=== PATIENT | male | born 1995 | race Caucasian/White ===

== ENCOUNTER 2016-06-19 08:58 | Emergency (ER) | payer BC, OTHER ==
--- NOTE | 2016-06-19 10:13 | EDM.PDOC ---
ED HPI GENERAL MEDICAL PROBLEM - General Chief Complaint: Abdominal Pain Stated Complaint: ILL Time Seen by Provider: 06/19/16 09:26 Source of Information: Reports: Patient History Limitations: Reports: No Limitations - History of Present Illness INITIAL COMMENTS - FREE TEXT/NARRATIVE: History of present illness: [] Patient had intermittent right flank pain that is sharp lasting a few seconds and has been dealing with at home. He's had intermittent episodes since he was 14 years old As morning of episode that was worse than normal and lasted longer so decided to come in to get checked. He denies any recent illnesses no shortness of breath or chest pain, blood in his urine or pain with urinating. He has had no vomiting, diarrhea or nausea. Review of systems: As per history of present illness and below otherwise all systems reviewed and negative. Past medical history: As per history of present illness and as reviewed below otherwise noncontributory. Surgical history: As per history of present illness and as reviewed below otherwise noncontributory. Social history: No reported history of drug or alcohol abuse. Family history: As per history of present illness and as reviewed below otherwise noncontributory. Physical exam: General: Well developed, well nourished in NAD HEENT: Atraumatic, normocephalic, pupils reactive, negative for conjunctival pallor or scleral icterus, mucous membranes moist, throat clear, neck supple, nontender, trachea midline. Lungs: Clear to auscultation, breath sounds equal bilaterally, chest nontender. Heart: S1S2, regular, negative for clicks, rubs, or JVD. Abdomen: Soft, nondistended, nontender. Negative for masses or hepatosplenomegaly. Negative for costovertebral tenderness. No rash noted on skin Pelvis: Stable nontender. Genitourinary: Deferred. Rectal: Deferred. Extremities: Atraumatic, negative for cords or calf pain. Neurovascular unremarkable. Neuro: Awake, alert, oriented. Cranial nerves II through XII unremarkable. Cerebellum unremarkable. Motor and sensory unremarkable throughout. Exam nonfocal. Diagnostics: [] Labs and x-rays negative Therapeutics: [] Pain in the ED therefore no meds were given. Impression: [] Nonspecific right trunk pain Plan: [] Tylenol for pain followup with primary care return if symptoms worsen or change Definitive disposition and diagnosis as appropriate pending reevaluation and review of above. abdomen Pain Score (Numeric/FACES): 2 - Related Data Allergies Allergy/AdvReac Type Severity Reaction Status Date / Time No Known Allergies Allergy Verified 06/19/16 09:21 Home Meds: Home Meds . [No Known Home Meds] 12/26/15 [History] Past Medical History - Past Health History Medical/Surgical History: Denies Medical/Surgical History Social & Family History - Family History Family Medical History: Noncontributory - Tobacco Use Smoking Status *Q: Current Every Day Smoker Years of Tobacco use: 2 Packs/Tins Daily: 1 - Caffeine Use Caffeine Use: Reports: None - Recreational Drug Use Recreational Drug Use: No ED ROS GENERAL - Review of Systems Review Of Systems: See Below (See history of present illness) ED EXAM, GI/ABD - Physical Exam Exam: See Below (See history of present illness) Course - Vital Signs Last Recorded V/S: Last Vital Signs Temp 36.8 C 06/19/16 09:23 Pulse 82 06/19/16 09:23 Resp 18 06/19/16 09:23 BP 123/81 06/19/16 09:23 Pulse Ox 96 06/19/16 09:23 - Orders/Labs/Meds Orders: Active Orders 24 hr Category Date Time Status Chest 2V [CR] Stat Exams 06/19/16 09:33 Taken Labs: Laboratory Tests 06/19/16 06/19/16 06/19/16 Range/Units 09:33 09:44 09:44 WBC 9.23 (4.0-11.0) K/uL RBC 5.21 (4.50-5.90) M/uL Hgb 16.3 (13.0-17.0) g/dL Hct 46.8 (38.0-50.0) % MCV 89.8 (80.0-98.0) fL MCH 31.3 (27.0-32.0) pg MCHC 34.8 (31.0-37.0) g/dL RDW Std Deviation 43.9 (28.0-62.0) fl RDW Coeff of Sacha 13 (11.0-15.0) % Plt Count 196 (150-400) K/uL MPV 10.20 (7.40-12.00) fL Neut % (Auto) 66.5 (48.0-80.0) % Lymph % (Auto) 24.1 (16.0-40.0) % [place] % (Auto) 8.0 (0.0-15.0) % Eos % (Auto) 1.2 (0.0-7.0) % Baso % (Auto) 0.2 (0.0-1.5) % Neut # (Auto) 6.1 H (1.4-5.7) K/uL Lymph # (Auto) 2.2 (0.6-2.4) K/uL [place] # (Auto) 0.7 (0.0-0.8) K/uL Eos # (Auto) 0.1 (0.0-0.7) K/uL Baso # (Auto) 0.0 (0.0-0.1) K/uL Nucleated RBC % 0.0 /100WBC Nucleated RBCs # 0 K/uL Sodium 138 (136-146) mmol/L Potassium 4.0 (3.5-5.1) mmol/L Chloride 105 (98-110) mmol/L Carbon Dioxide 24 (21-31) mmol/L BUN 12 (6.0-23.0) mg/dL Creatinine 1.1 (0.6-1.5) mg/dL Est Cr Clr Drug Dosing 113.03 mL/min Estimated GFR (MDRD) > 60.0 ml/min Glucose 94 (60-110) mg/dL Calcium 9.6 (8.8-10.8) mg/dL Total Bilirubin 0.7 (0.1-1.5) mg/dL AST 17 (5-40) IU/L ALT 17 (8-54) IU/L Alkaline Phosphatase 64 (40-150) Total Protein 7.5 (6.0-8.0) g/dL Albumin 4.7 (3.5-5.0) g/dL Globulin 2.8 (2.0-3.5) g/dL Albumin/Globulin Ratio 1.7 (1.3-2.8) Lipase 15 (7-80) U/L Urine Color YELLOW Urine Appearance CLEAR Urine pH 6.0 (5.0-8.0) Ur Specific [place] 1.020 (1.001-1.035) Urine Protein NEGATIVE (NEGATIVE) mg/dL Urine Glucose (UA) NEGATIVE (NEGATIVE) mg/dL Urine Ketones NEGATIVE (NEGATIVE) mg/dL Urine Occult Blood NEGATIVE (NEGATIVE) Urine Nitrite NEGATIVE (NEGATIVE) Urine Bilirubin SMALL H (NEGATIVE) Urine Ictotest NEGATIVE Urine Urobilinogen 1.0 (<2.0) EU/dL Ur Leukocyte Esterase NEGATIVE (NEGATIVE) Urine RBC 0-2 (0-2/HPF) Urine WBC 0-2 (0-5/HPF) Ur Epithelial Cells RARE (NONE-FEW) Urine Bacteria FEW (NEGATIVE) Departure - Departure Time of Disposition: 11:27 Disposition: Home, Self-Care 01 Condition: good Clinical Impression: Right flank pain, chronic - Discharge Information Forms: ED Department Discharge Additional Instructions: The following information is given to patients seen in the emergency department who are being discharged to home. This information is to outline your options for follow-up care. We provide all patients seen in our emergency department with a follow-up referral. The need for follow-up, as well as the timing and circumstances, are variable depending upon the specifics of your emergency department visit. If you don't have a primary care physician on staff, we will provide you with a referral. We always advise you to contact your personal physician following an emergency department visit to inform them of the circumstance of the visit and for follow-up with them and/or the need for any referrals to a consulting specialist. The emergency department will also refer you to a specialist when appropriate. This referral assures that you have the opportunity for follow-up care with a specialist. All of these measure are taken in an effort to provide you with optimal care, which includes your follow-up. Under all circumstances we always encourage you to contact your private physician who remains a resource for coordinating your care. When calling for follow-up care, please make the office aware that this follow-up is from your recent emergency room visit. If for any reason you are refused follow-up, please contact the [facility] Emergency Department at and asked to speak to the emergency department charge nurse. Tylenol for pain [facility] [address] [place] [id number] - My Orders Last 24 Hours: My Active Orders 06/19/16 09:33 Chest 2V [CR] Stat - Assessment/Plan Last 24 Hours: My Active Orders 06/19/16 09:33 Chest 2V [CR] Stat
[2016-06-19 10:14] LABS: CHLORIDE,CL 105 mmol/L (98-110); SODIUM,NA 138 mmol/L (136-146)
[2016-06-19 11:35] VITALS: BP 135/84
--- NOTE | 2016-06-19 20:40 | CR ---
EXAM DATE: 06/19/16 PATIENT'S AGE: 20 Patient: SHAKA TURNER Facility: [place], [place] Site . Site : 1995 Study: XRay Chest Thoracic [id number]/12/2017 11:15:59 AM Ordering Physician: Be Trevino Final Report: INDICATION: Chest pain COMPARISON: none TECHNIQUE: Two view chest. FINDINGS: The lungs are clear. There is no evidence of pneumothorax. The heart, mediastinum and pulmonary vessels are of normal size. There is no evidence of pleural fluid. IMPRESSION: Negative chest. Dictated by Melvin Esparza MD @ Jun 19 2016 11:16AM (Electronic Signature) Report Signed by Proxy. RANDY
== END 2016-06-19 11:38 | disposition home or self-care (01) ==
LOC: MW.ED 08:58
DX: R10.9 Unspecified abdominal pain (principal); F17.200 Nicotine dependence, unspecified, uncomplicated
CPT/HCPCS: 36415; 71020; 71020-26; 80053; 81001; 83690; 85025; 99282; 99284

== ENCOUNTER 2017-01-02 00:54 | Emergency (ER) | payer BC, OTHER ==
--- NOTE | 2017-01-02 01:05 | EDM.PDOC ---
ED HPI GENERAL MEDICAL PROBLEM - General Chief Complaint: Abdominal Pain Stated Complaint: ABDOMINAL PAIN Time Seen by Provider: 01/02/17 01:03 Source of Information: Reports: Patient History Limitations: Reports: No Limitations - History of Present Illness INITIAL COMMENTS - FREE TEXT/NARRATIVE: 21 yo male presents to ED with complaints of abdominal pain. Pain first began yesterday morning at 7:30 am. Patient woke up and went to the bathroom. While attempting to have a BM he suddenly felt a sharp pain on the right side of his abdomen and seemed to radiate down into his right groin. The pain was constant, 7/10 intensity and lasted for 2-3 hours. He had some associated nausea and one episode of vomiting. He felt okay during the day until around midnight when he felt the pain return. He had another episode of vomiting. He ate [employer] about 3 hours prior to pain onset. Pain is still present. He states he was doing well up until when pain started yesterday morning and denie any recent illnesses. He has not had any fever, chills, headache, sob, chest pain, constipation, diarrhea, weight loss, dysuria, hematuria, urinary frequency, oliguria or syncope. He drinks alcohol 1x/month. He last consumed alcohol last wednesday and had 5 beers then. Right Lower Abdomen Pain Score (Numeric/FACES): 7 - Related Data Allergies Allergy/AdvReac Type Severity Reaction Status Date / Time No Known Allergies Allergy Verified 01/02/17 01:18 Home Meds: Home Meds Tamsulosin [Flomax] 0.4 mg PO DAILY 7 Days #7 cap.er 01/02/17 [Rx] traMADol HCl [Tramadol HCl] 50 mg PO Q6H PRN 5 Days #20 tablet 01/02/17 [Rx] Past Medical History - Past Health History Medical/Surgical History: Denies Medical/Surgical History Social & Family History - Family History Family Medical History: Noncontributory - Tobacco Use Smoking Status *Q: Current Every Day Smoker Years of Tobacco use: 2 Packs/Tins Daily: 1 - Caffeine Use Caffeine Use: Reports: None - Recreational Drug Use Recreational Drug Use: No ED ROS GENERAL - Review of Systems Review Of Systems: See Below Constitutional: Reports: No Symptoms. Denies: Fever, Chills, Weakness, Fatigue , Night Sweats, Decreased Appetite HEENT: Reports: No Symptoms Respiratory: Reports: No Symptoms Cardiovascular: Reports: No Symptoms Endocrine: Reports: No Symptoms GI/Abdominal: Reports: Abdominal Pain, Nausea, Vomiting. Denies: Black Stool, Bloody Stool, Constipation, Diarrhea, Decreased Appetite, Distension : Reports: No Symptoms Musculoskeletal: Reports: No Symptoms Skin: Reports: No Symptoms Neurological: Reports: No Symptoms. Denies: Confusion, Headache, Numbness, Syncope Psychiatric: Reports: No Symptoms Hematologic/Lymphatic: Reports: No Symptoms Immunologic: Reports: No Symptoms ED EXAM, GI/ABD - Physical Exam Exam: See Below Exam Limited By: No Limitations General Appearance: Alert Eyes: Bilateral: Normal Appearance Ears: Normal External Exam, Hearing Grossly Normal Nose: Normal Inspection, Normal Mucosa, No Blood Throat/Mouth: Normal Inspection, Normal Lips, Normal Teeth, Normal Gums, Normal Oropharynx, Normal Voice, No Airway Compromise Head: Atraumatic, Normocephalic Neck: Normal Inspection, Supple, Non-Tender, Full Range of Motion Respiratory/Chest: No Respiratory Distress, Lungs Clear, Normal Breath Sounds Cardiovascular: Normal Peripheral Pulses, Regular Rate, Rhythm, No Edema GI/Abdominal Exam: Normal Bowel Sounds, Soft, Non-Tender, No Organomegaly, No Distention, No Mass, Other (negative sandhu's sign). No: Guarding, Rigid, Rebound, Hepatomegaly Back Exam: Normal Inspection, CVA Tenderness (R). No: CVA Tenderness (L) Extremities: Normal Inspection, Normal Range of Motion, Non-Tender, No Pedal Edema, Normal Capillary Refill Neurological: Alert, Oriented, CN II-XII Intact, Normal Reflexes Psychiatric: Normal Affect, Normal Mood Skin Exam: Warm, Dry, Intact Lymphatic: No Adenopathy Course - Vital Signs Last Recorded V/S: Last Vital Signs Temp 36.8 C 01/02/17 01:01 Pulse 62 01/02/17 01:01 Resp 16 01/02/17 01:01 BP 134/96 H 01/02/17 01:01 Pulse Ox 99 01/02/17 01:01 - Orders/Labs/Meds Orders: Active Orders 24 hr Category Date Time Status Abdomen Pelvis wo Cont [CT] Stat Exams 01/02/17 01:13 Taken Labs: Laboratory Tests 01/02/17 01/02/17 01/02/17 Range/Units 01:15 01:23 01:23 WBC 10.70 (4.0-11.0) K/uL RBC 5.09 (4.50-5.90) M/uL Hgb 15.7 (13.0-17.0) g/dL Hct 45.9 (38.0-50.0) % MCV 90.2 (80.0-98.0) fL MCH 30.8 (27.0-32.0) pg MCHC 34.2 (31.0-37.0) g/dL RDW Std Deviation 42.2 (28.0-62.0) fl RDW Coeff of Sacha 13 (11.0-15.0) % Plt Count 209 (150-400) K/uL MPV 10.40 (7.40-12.00) fL Neut % (Auto) 57.4 (48.0-80.0) % Lymph % (Auto) 31.7 (16.0-40.0) % [place] % (Auto) 9.3 (0.0-15.0) % Eos % (Auto) 1.3 (0.0-7.0) % Baso % (Auto) 0.3 (0.0-1.5) % Neut # (Auto) 6.1 H (1.4-5.7) K/uL Lymph # (Auto) 3.4 H (0.6-2.4) K/uL [place] # (Auto) 1.0 H (0.0-0.8) K/uL Eos # (Auto) 0.1 (0.0-0.7) K/uL Baso # (Auto) 0.0 (0.0-0.1) K/uL Sodium 140 (136-146) mmol/L Potassium 3.8 (3.5-5.1) mmol/L Chloride 106 (98-110) mmol/L Carbon Dioxide 23 (21-31) mmol/L BUN 9 (6.0-23.0) mg/dL Creatinine 1.1 (0.6-1.5) mg/dL Est Cr Clr Drug Dosing 112.69 mL/min Estimated GFR (MDRD) > 60.0 ml/min Glucose 95 (60-110) mg/dL Calcium 9.5 (8.8-10.8) mg/dL Total Bilirubin 0.5 (0.1-1.5) mg/dL AST 13 (5-40) IU/L ALT 15 (8-54) IU/L Alkaline Phosphatase 68 (40-150) Total Protein 7.4 (6.0-8.0) g/dL Albumin 4.3 (3.5-5.0) g/dL Globulin 3.1 (2.0-3.5) g/dL Albumin/Globulin Ratio 1.4 (1.3-2.8) Urine Color YELLOW Urine Appearance CLEAR Urine pH 6.0 (5.0-8.0) Ur Specific [place] 1.025 (1.001-1.035) Urine Protein NEGATIVE (NEGATIVE) mg/dL Urine Glucose (UA) NEGATIVE (NEGATIVE) mg/dL Urine Ketones NEGATIVE (NEGATIVE) mg/dL Urine Occult Blood MODERATE (NEGATIVE) Urine Nitrite NEGATIVE (NEGATIVE) Urine Bilirubin NEGATIVE (NEGATIVE) Urine Urobilinogen 0.2 (<2.0) EU/dL Ur Leukocyte Esterase NEGATIVE (NEGATIVE) Urine RBC 1-5 (0-2/HPF) Urine WBC 0-1 (0-5/HPF) Ur Epithelial Cells RARE (NONE-FEW) Urine Bacteria RARE (NEGATIVE) Urinalysis Comment Meds: Medications Discontinued Medications Generic Name Dose Route Start Last Admin Trade Name Freq PRN Reason Stop Dose Admin Hydromorphone HCl 1 mg 01/02/17 01:46 Dilaudid IVPUSH 01/02/17 01:47 ONETIME ONE Sodium Chloride 1,000 mls @ 999 mls/hr 01/02/17 01:16 01/02/17 01:28 Normal Saline IV 01/02/17 02:16 999 mls/hr .BOLUS ONE Administration Ketorolac Tromethamine 30 mg 01/02/17 01:16 01/02/17 01:28 Toradol IVPUSH 01/02/17 01:17 30 mg ONETIME ONE Administration Ondansetron HCl 4 mg 01/02/17 01:16 01/02/17 01:28 Zofran IVPUSH 01/02/17 01:17 4 mg ONETIME ONE Administration Departure - Departure Time of Disposition: 02:32 Disposition: Home, Self-Care 01 Clinical Impression: Hydronephrosis, Hematuria, Urolithiasis - Discharge Information Prescriptions: Tamsulosin [Flomax] 0.4 mg PO DAILY 7 Days #7 cap.er traMADol HCl [Tramadol HCl] 50 mg PO Q6H PRN 5 Days #20 tablet PRN Reason: Pain Referrals: PCP,None [Primary Care Provider] - Sebastien Wilcox MD [Physician] - Forms: ED Department Discharge Additional Instructions: The following information is given to patients seen in the emergency department who are being discharged to home. This information is to outline your options for follow-up care. We provide all patients seen in our emergency department with a follow-up referral. The need for follow-up, as well as the timing and circumstances, are variable depending upon the specifics of your emergency department visit. If you don't have a primary care physician on staff, we will provide you with a referral. We always advise you to contact your personal physician following an emergency department visit to inform them of the circumstance of the visit and for follow-up with them and/or the need for any referrals to a consulting specialist. The emergency department will also refer you to a specialist when appropriate. This referral assures that you have the opportunity for followup care with a specialist. All of these measure are taken in an effort to provide you with optimal care, which includes your followup. Under all circumstances we always encourage you to contact your private physician who remains a resource for coordinating your care. When calling for followup care, please make the office aware that this follow-up is from your recent emergency room visit. If for any reason you are refused follow-up, please contact the [facility] emergency department at and asked to speak to the emergency department charge nurse. - Problem List Review Problem List Initiated/Reviewed/Updated: Yes - My Orders Last 24 Hours: My Active Orders 01/02/17 01:13 Abdomen Pelvis wo Cont [CT] Stat - Assessment/Plan Last 24 Hours: My Active Orders 01/02/17 01:13 Abdomen Pelvis wo Cont [CT] Stat Plan: Diagnostics: cbc, cmp, ua, ct abdomen/pelvis wo contrast Therapeutics: IVF, Toradol 30 mg IV single dose, Zofran 4 mg IV Assessment: 1. Urolithiasis -0.3 cm stone in distal right ureter on CT -at least 4 additional stones present on CT 2. Mild Right Hydronephrosis -secondary to #1 3. Hematuria -secondary to #1 Plan: 1. Prescribed Flomax 0.4 mg PO QD for 7 days 2. prescription for Tramadol 50 mg PO [id number] PRN for Pain, 5 days, 20 tabs, no refills 3. f/u with urology within 1-2 weeks - will schedule appointment with Dr. Pena 4. Return to ED if return or symptoms prior to f/u with urology
[2017-01-02] MEDS ORDERED: Ondansetron 4 MG/2 ML SDV IVPUSH ONE (01:16)
[2017-01-02] MEDS ORDERED: Sodium Chloride 0.9% 1,000 ML IV ONE (01:16)
[2017-01-02] MEDS ORDERED: Ketorolac 30 MG/ML SDV IVPUSH ONE (01:16)
[2017-01-02] MEDS ORDERED: HYDROmorphone 1 MG/ML Syringe IVPUSH ONE (01:46)
[2017-01-02 02:02] LABS: CHLORIDE,CL 106 mmol/L (98-110); SODIUM,NA 140 mmol/L (136-146)
[2017-01-02 02:43] VITALS: BP 120/80
--- NOTE | 2017-01-03 06:42 | CT ---
EXAM DATE: 01/02/17 PATIENT'S AGE: 21 Patient: SHAKA TURNER Facility: [place], [place] Site . Site : 1995 Study: CT Abdomen/Pelvis [id number]/25/2017 1:52:00 AM Ordering Physician: Doctor Pereira Final Report: INDICATION: Right flank pain TECHNIQUE: CT abdomen and pelvis without contrast. COMPARISON: None FINDINGS: Lower chest: Unremarkable. Liver: Unremarkable. Spleen: Unremarkable. Pancreas: Unremarkable. Gallbladder and bile ducts: Unremarkable. Adrenal glands: Unremarkable. Kidneys: Mild right hydronephrosis and hydroureter secondary to a 0.3 cm stone in the distal right ureter. At least four additional right-sided stones are seen , the largest measuring 0.3 cm in diameter. No left-sided stones identified. GI tract: Unremarkable. Appendix is normal. Vascular structures: Unremarkable. Lymph nodes: Unremarkable. Miscellaneous: Unremarkable. No free air or significant free fluid. Pelvic Organs: Unremarkable. Bones: Unremarkable for age. IMPRESSION: Mild right hydronephrosis and hydroureter secondary to a 0.3 cm stone in the distal right ureter. There are at least four additional right-sided renal stones. Please note that all CT scans at this facility use dose modulation, iterative reconstruction, and/or weight-based dosing when appropriate to reduce radiation dose to as low as reasonably achievable. Dictated by Caty Tan MD @ Jan 02 2017 2:10AM (Electronic Signature) Report Signed by Proxy. [facility] HOSPITALSandy
== END 2017-01-02 02:43 | disposition home or self-care (01) ==
LOC: MW.ED 00:54
DX: N13.2 Hydronephrosis with renal and ureteral calculous obstruction (principal); F17.210 Nicotine dependence, cigarettes, uncomplicated; Z79.899 Other long term (current) drug therapy
CPT/HCPCS: 74176; 80053; 81001; 85025; 96361; 96374; 96375; 99284; J1885; J2405; J7040; 99283

== ENCOUNTER 2017-07-18 22:55 | Emergency (ER) | payer BC, OTHER ==
[2017-07-18 23:12] VITALS: BP 138/78
--- NOTE | 2017-07-18 23:17 | EDM.PDOC ---
ED HPI GENERAL MEDICAL PROBLEM - General Chief Complaint: Skin Complaint Stated Complaint: infection on back Time Seen by Provider: 07/18/17 23:12 - History of Present Illness INITIAL COMMENTS - FREE TEXT/NARRATIVE: HISTORY AND PHYSICAL: History of present illness: Patient's 21-year-old male presents with a concern of possible infection in a subcutaneous cyst on his mid back he's had this for some time he did try to drain it with a pocket knife. He had no fever chills nausea vomiting or other complaints. Review of systems: As per history of present illness and below otherwise all systems reviewed and negative. Past medical history: As per history of present illness and as reviewed below otherwise noncontributory. Surgical history: As per history of present illness and as reviewed below otherwise noncontributory. Social history: No reported history of drug or alcohol abuse. Family history: As per history of present illness and as reviewed below otherwise noncontributory. Physical exam: HEENT: Atraumatic, normocephalic, pupils reactive, negative for conjunctival pallor or scleral icterus, mucous membranes moist, throat clear, neck supple, nontender, trachea midline. Lungs: Clear to auscultation, breath sounds equal bilaterally, chest nontender. Heart: S1S2, regular, negative for clicks, rubs, or JVD. Abdomen: Soft, nondistended, nontender. Negative for masses or hepatosplenomegaly. Negative for costovertebral tenderness. Pelvis: Stable nontender. Genitourinary: Deferred. Rectal: Deferred. Extremities: Atraumatic, negative for cords or calf pain. Neurovascular unremarkable. Neuro: Awake, alert, oriented. Cranial nerves II through XII unremarkable. Cerebellum unremarkable. Motor and sensory unremarkable throughout. Exam nonfocal. Back: Patient has a lower thoracic subcutaneous nodule possibly consistent with a sebaceous cyst that is an excoriated center and some surrounding erythema. There is no fluctuance is minimal induration is mild warmth. Diagnostics: None Therapeutics: None Impression: #1 subcutaneous nodule mid back with cellulitis Definitive disposition and diagnosis as appropriate pending reevaluation and review of above. - Related Data Allergies Allergy/AdvReac Type Severity Reaction Status Date / Time No Known Allergies Allergy Verified 01/02/17 01:18 Home Meds: Home Meds Tamsulosin [Flomax] 0.4 mg PO DAILY 7 Days #7 cap.er 01/02/17 [Rx] traMADol HCl [Tramadol HCl] 50 mg PO Q6H PRN 5 Days #20 tablet 01/02/17 [Rx] Past Medical History - Past Health History Medical/Surgical History: Denies Medical/Surgical History Social & Family History - Family History Family Medical History: Noncontributory - Tobacco Use Smoking Status *Q: Current Every Day Smoker Years of Tobacco use: 7 Packs/Tins Daily: 1 - Caffeine Use Caffeine Use: Reports: None ED ROS GENERAL - Review of Systems Review Of Systems: ROS reveals no pertinent complaints other than HPI. ED EXAM, SKIN/RASH Exam: See Below (See dictation) Course - Vital Signs Last Recorded V/S: Last Vital Signs Temp 37.2 C 07/18/17 23:10 Pulse 89 07/18/17 23:10 Resp 18 07/18/17 23:10 BP 138/78 07/18/17 23:10 Pulse Ox 96 07/18/17 23:10 Departure - Departure Time of Disposition: 23:15 Disposition: Home, Self-Care 01 Condition: Good Clinical Impression: Cellulitis, Subcutaneous nodule - Discharge Information Referrals: PCP,None [Primary Care Provider] - Additional Instructions: The following information is given to patients seen in the emergency department who are being discharged to home. This information is to outline your options for follow-up care. We provide all patients seen in our emergency department with a follow-up referral. The need for follow-up, as well as the timing and circumstances, are variable depending upon the specifics of your emergency department visit. If you don't have a primary care physician on staff, we will provide you with a referral. We always advise you to contact your personal physician following an emergency department visit to inform them of the circumstance of the visit and for follow-up with them and/or the need for any referrals to a consulting specialist. The emergency department will also refer you to a specialist when appropriate. This referral assures that you have the opportunity for followup care with a specialist. All of these measure are taken in an effort to provide you with optimal care, which includes your followup. Under all circumstances we always encourage you to contact your private physician who remains a resource for coordinating your care. When calling for followup care, please make the office aware that this follow-up is from your recent emergency room visit. If for any reason you are refused follow-up, please contact the [facility] emergency department at and asked to speak to the emergency department charge nurse. [facility]EVIN [facility] Specialty Care - General Surgery Professional Building [address] [place] [address], [address] [place] [address] Bactrim/clindamycin as prescribed follow-up Gen. surgery call schedule appointment above Wednesday
== END 2017-07-18 23:25 | disposition home or self-care (01) ==
LOC: MW.ED 22:55
DX: L03.312 Cellulitis of back [any part except buttock and flank] (principal); R22.2 Localized swelling, mass and lump, trunk; F17.210 Nicotine dependence, cigarettes, uncomplicated
CPT/HCPCS: 99282

== ENCOUNTER 2018-05-08 13:01 | Emergency (ER) | payer OTHER ==
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
[2018-05-08 13:39] LABS: CHLORIDE,CL 107 mmol/L (98-107); SODIUM,NA 142 mmol/L (136-148)
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
[2018-05-08 16:11] VITALS: BP 121/52
== END 2018-05-08 16:11 | disposition home or self-care (01) ==
LOC: MW.ED 13:01
DX: S12.601A Unspecified nondisplaced fracture of seventh cervical vertebra, initial encounter for closed fracture (principal); S49.91XA Unspecified injury of right shoulder and upper arm, initial encounter; V86.96XA Unspecified occupant of dirt bike or motor/cross bike injured in nontraffic accident, initial encounter
CPT/HCPCS: 36415; 70450; 70450-26; 71045; 71045-26; 72125; 72125-26; 72170; 72170-26; 73030-26-RT; 73030-RT; 80053; 85025; 99284; 99284-25